=== PATIENT | male | born 1985 | race Caucasian/White ===

== ENCOUNTER 2019-01-20 11:30 | Emergency (ER) | payer OTHER ==
[~2019-01-20] VITALS: Ht 175.3 cm; Wt 127.5 kg
[2019-01-20 11:54] VITALS: BP 151/97
--- NOTE | 2019-01-20 13:50 | NUR ---
Patient ambulated to bed 4. RN evaluating patient at bedside.
[2019-01-20] MEDS ORDERED: NACL 0.9% 1,000 ML IV ONE (13:55)
--- NOTE | 2019-01-20 14:12 | NUR ---
PT PRESENTS TO ED WITH C/O ALCOHOL WITHDRAWAL. PT REPORTS LAST DRINK WAS TODAY AT 0500. PT STATED HE DRINKS 2 PINTS OF VODKA PER DAY. TREMORS PRESENT; NON-DIAPHORETIC. -N/V, HALLUCINATION, OR ANXIETY.
[2019-01-20] MEDS ORDERED: diphenhydrAMINE 50 MG/ML VIAL IVP ONE (14:35)
[2019-01-20] MEDS ORDERED: FAMOTIDINE 20 MG/2 ML VIAL IVP ONE (14:35)
[2019-01-20 15:11] LABS: BARBITURATE, URINE NEG. ng/ml (NEG <=200); BENZODIAZEPINE, URINE POS. ng/mL (NEG <=200); CANNABINOID, URINE POS. ng/mL (NEG <=50); COCAINE, URINE NEG. ng/mL (NEG <=300); OPIATE, URINE NEG. ng/mL (NEG <=2000); PHENCYCLIDINE SCREEN,URINE NEG. ng/mL (NEG <=25)
--- NOTE | 2019-01-20 15:36 | NUR ---
Pupils equal and reactive to light bilaterally.Speech normal for patient. Patient is alert and oriented to person, place, time and event. Bilateral hand drafting engineer equal. Bilateral foot push equal.
[2019-01-20] MEDS ORDERED: LORazepam 1 MG TAB PO ONE (15:50)
[2019-01-20] MEDS ORDERED: hydrOXYzine HCL 25 MG TAB PO ONE (15:50)
[2019-01-20 17:19] VITALS: BP 148/88
== END 2019-01-20 17:20 | disposition home or self-care (01) ==
LOC: MED 11:30
DX: F12.10 Cannabis abuse, uncomplicated (principal); F13.10 Sedative, hypnotic or anxiolytic abuse, uncomplicated; F10.129 Alcohol abuse with intoxication, unspecified; R07.9 Chest pain, unspecified
CPT/HCPCS: 36415; 80305; 93005; 96374; 96375; 99284; G0482; J1200; J3490; J7030

== ENCOUNTER 2022-01-19 16:40 | Emergency (ER) | payer OTHER ==
[~2022-01-19] VITALS: Ht 172.7 cm; Wt 81.6 kg
[2022-01-19 16:58] VITALS: BP 185/143
--- NOTE | 2022-01-19 17:10 | NUR ---
DR BURGER AT BEDSIDE FOR EVAL
[2022-01-19] MEDS ORDERED: KETOROLAC 30 MG/ML VIAL IVP ONE (17:20)
[2022-01-19] MEDS ORDERED: FOLIC ACID 5 MG/ML SYR IM ONE (17:20)
[2022-01-19] MEDS ORDERED: MAG SULF 2000 MG/WATER PREMIX 50 ML IV ONE (17:20)
[2022-01-19] MEDS ORDERED: ONDANSETRON 4 MG/2 ML VIAL IVP ONE (17:20)
[2022-01-19] MEDS ORDERED: THIAMINE 200 MG/2 ML VIAL IM ONE (17:20)
[2022-01-19] MEDS ORDERED: NACL 0.9% 1,000 ML IV SCH (17:20)
[2022-01-19] MEDS ORDERED: ALUMINUM HYD/MAG/SIMETHICONE 30 ML, DICYCLOMINE HCL LIQUID 20 MG, LIDOCAINE VISCOUS 2% ... PO ONE ×3 (17:20)
[2022-01-19] MEDS ORDERED: MIDAZOLAM 2 MG/2 ML VIAL IVP ONE (17:20)
--- NOTE | 2022-01-19 17:26 | NUR ---
36 Y/O MALE C/O ETOH WITHDRAWL, LAST DRINK 3 HOURS AGO OF BEER. HAS BEEN BINGE DRINKING 10 DAYS 3-4 PINTS DAILY OF VODKA. C/O AUDITORY HALLUCINATIONS, CHEST PAIN, DIZZINESS AND WEAKNESS, SHAKINESS. NKA PMH: GASTRIC BYPASS
[2022-01-19] MEDS ORDERED: DICYCLOMINE HCL LIQUID 10 MG/5 ML UDC ONE (17:40)
[2022-01-19] MEDS ORDERED: ALUMINUM HYD/MAG/SIMETHICONE 30 ML UDC ONE (17:40)
[2022-01-19 17:57] LABS: BASOPHILS % (AUTO) 0.5 % (0.0-2.0); EOSINOPHILS # (AUTO) 0.1 K/uL (0-0.4); EOSINOPHILS % (AUTO) 0.7 % (0.0-4.0); HEMATOCRIT 38.6 % (36-52); HEMOGLOBIN 12.2 g/dL (12.0-18.0); LYMPHOCYTES # (AUTO) 2.2 K/uL (2.0-11.5); LYMPHOCYTES % (AUTO) 24.9 % (20.5-51.1); MEAN CORPUSCULAR HEMOGLOBIN 22 pg (27-31); MEAN CORPUSCULAR HGB CONC 32 g/dL (33-37); MEAN CORPUSCULAR VOLUME 68.8 fL (80-94); MONOCYTES # (AUTO) 0.6 K/uL (0.8-1.0); MONOCYTES % (AUTO) 7.2 % (1.7-9.3); NEUTROPHILS % (AUTO) 66.7 % (42.2-75.2); PLATELET COUNT (AUTO) 419 K/uL (140-450); RED BLOOD CELL COUNT(AUTO) 5.61 MIL/uL (4.20-6.10); RED CELL DISTRIBUTION WIDTH 19.2 % (11.6-13.7); WHITE BLOOD COUNT (AUTO) 8.9 K/uL (4.8-10.8)
[2022-01-19 19:04] LABS: ALBUMIN 4.1 g/dL (3.4-5.0); ANION GAP 27.4 (8-16); CARBON DIOXIDE 17.5 mmol/L (21-32); POTASSIUM 3.9 mmol/L (3.5-5.1); TOTAL BILIRUBIN 1.1 mg/dL (0.0-1.0)
--- NOTE | 2022-01-19 19:59 | NUR ---
DR BURGER AT BEDSIDE
[2022-01-19] MEDS ORDERED: ACETAMINOPHEN 325 MG TAB PO ONE (20:05)
[2022-01-19] MEDS ORDERED: chlordiazePOXIDE 25 MG CAP PO SCH (20:05)
[2022-01-19 20:15] LABS: APPEARANCE,URINE CLEAR (CLEAR); BILIRUBIN,URINE NEGATIVE (NEGATIVE); BLOOD, URINE NEGATIVE (NEGATIVE); COLOR,URINE YELLOW (YELLOW); LEUKOCYTE ESTERASE ,URINE NEGATIVE (NEGATIVE); NITRITE, URINE NEGATIVE (NEGATIVE); UGLUCOSE NEGATIVE (NEGATIVE)
[2022-01-19] MEDS ORDERED: LIB25 PO (21:19)
[2022-01-19] MEDS ORDERED: ONDA-188 SL (21:19)
[2022-01-19 21:35] VITALS: BP 144/79
--- NOTE | 2022-01-19 21:35 | NUR ---
Patient discharged with v/s stable. Written and verbal after care instructions given and explained. Patient alert, oriented and verbalized understanding of instructions. Ambulatory with steady gait. All questions addressed prior to discharge. ID band removed. Patient advised to follow up with PMD. Rx of LIBRIUMCOLE ODT given. Patient educated on indication of medication including possible reaction and side effects. Opportunity to ask questions provided and answered.
== END 2022-01-19 21:35 | disposition home or self-care (01) ==
LOC: MED 16:40
DX: F10.139 Alcohol abuse with withdrawal, unspecified (principal); Z20.822 Contact with and (suspected) exposure to COVID-19; Z98.890 Other specified postprocedural states; Z79.899 Other long term (current) drug therapy; Y90.3 Blood alcohol level of 60-79 mg/100 ml
CPT/HCPCS: 36415; 80053; 81001; 82150; 83690; 85025; 87426; 96365; 96366; 96372; 96375; 99285; G0482; J1885; J2250; J2405; J3411; J3475; J7030; J3490

== ENCOUNTER 2022-12-06 07:11 | Observation (INO) | payer OTHER ==
[~2022-12-06] VITALS: Ht 175.3 cm; Wt 126.6 kg
[~2022-12-06 07:11] MED LIST: LIB25 PO; ONDA-188 SL
[2022-12-06] MEDS ORDERED: LORazepam 1 MG TAB PO ONE (07:25)
[2022-12-06 07:29] VITALS: BP 126/72
--- NOTE | 2022-12-06 07:35 | NUR ---
pt ambulatory to bed 06
--- NOTE | 2022-12-06 07:40 | NUR ---
Patient being evaluated by physician at bedside.
[2022-12-06] MEDS ORDERED: LORazepam 2 MG/ML VIAL IVP ONE ×3 (07:45→13:10)
[2022-12-06] MEDS ORDERED: LORazepam 2 MG/ML VIAL ONE (07:45)
[2022-12-06] MEDS ORDERED: NACL 0.9% 1,000 ML IV ONE ×2 (07:45→09:35)
[2022-12-06 08:28] LABS: CARBON DIOXIDE 18.4 mmol/L (21-32); POTASSIUM 3.4 mmol/L (3.5-5.1)
[2022-12-06 08:29] LABS: ALBUMIN 4.2 g/dL (3.4-5.0); TOTAL BILIRUBIN 0.8 mg/dL (0.0-1.0)
[2022-12-06] MEDS ORDERED: ONDA-188 PO (09:30)
[2022-12-06] MEDS ORDERED: LORA-476 PO (09:30)
--- NOTE | 2022-12-06 10:03 | NUR ---
Patient is laying in bed, respirations even and unlabored. All needs met by staff.
--- NOTE | 2022-12-06 12:10 | NUR ---
Urine sample obtained, walked to lab.
[2022-12-06 12:59] LABS: BARBITURATE, URINE NEGATIVE ng/ml (NEG <=200); BENZODIAZEPINE, URINE POSITIVE ng/mL (NEG <=200); CANNABINOID, URINE POSITIVE ng/mL (NEG <=50); COCAINE, URINE NEGATIVE ng/mL (NEG <=300); OPIATE, URINE NEGATIVE ng/mL (NEG <=2000); PHENCYCLIDINE SCREEN,URINE NEGATIVE ng/mL (NEG <=25)
[2022-12-06 13:22] LABS: BASOPHILS # (AUTO) 0.1 K/uL (0.00-0.22); BASOPHILS % (AUTO) 1.4 % (0.0-2.0); EOSINOPHILS % (AUTO) 0.4 % (0.0-4.0); HEMATOCRIT 37.6 % (36-52); LYMPHOCYTES # (AUTO) 1.3 K/uL (2.0-11.5); LYMPHOCYTES % (AUTO) 12.5 % (20.5-51.1); MEAN CORPUSCULAR HEMOGLOBIN 22 pg (27-31); MEAN CORPUSCULAR HGB CONC 32 g/dL (33-37); MEAN CORPUSCULAR VOLUME 68.6 fL (80-94); MONOCYTES # (AUTO) 0.6 K/uL (0.8-1.0); MONOCYTES % (AUTO) 6.3 % (1.7-9.3); NEUTROPHILS # (AUTO) 8.1 K/uL (1.8-7.7); NEUTROPHILS % (AUTO) 79.4 % (42.2-75.2); PLATELET COUNT (AUTO) 374 K/uL (140-450); RED BLOOD CELL COUNT(AUTO) 5.47 MIL/uL (4.20-6.10); RED CELL DISTRIBUTION WIDTH 19.1 % (11.6-13.7); WHITE BLOOD COUNT (AUTO) 10.2 K/uL (4.8-10.8)
[2022-12-06] MEDS ORDERED: ONDANSETRON 4 MG/2 ML VIAL IVP PRN (14:20)
[2022-12-06] MEDS ORDERED: ACETAMINOPHEN 325 MG TAB PO PRN (14:20)
[2022-12-06] MEDS ORDERED: MORPHINE SULFATE 2 MG/ML SYR IVP PRN (14:20)
[2022-12-06] MEDS ORDERED: LORazepam 2 MG/ML VIAL IVP PRN (14:20)
[2022-12-06] MEDS: NACL 0.9% 1,000 ML IV SCH ×2 (14:49→21:47)
--- NOTE | 2022-12-06 15:15 | NUR ---
Patient ambulated to restroom with steady gait.
--- NOTE | 2022-12-06 16:40 | NUR ---
Patient will be admitted to care of Dr. Tinajero. Admited to Telemetry. Will go to room 112-A. Belongings list completed. Report to CECILIA Porter.
--- NOTE | 2022-12-06 16:50 | NUR ---
RECEIVED PATIENT FROM ED. PATIENT AMBULATORY. HEART RATE ELEVATED. PATIENT CARE PLAN STARTED.
--- NOTE | 2022-12-06 19:10 | NUR ---
ENDORSED PATIENT TO PM NURSE FOR CONTINUITY OF CARE.
--- NOTE | 2022-12-06 19:10 | NUR ---
RECEIVED REPORT FROM DAY SHIFT NURSE FOR CONTINUITY OF CARE. PT IS AWAKE, A&O X4, AMBULATORY, ON ROOM AIR AND ON CARDIAC MONITORING. PT HAS IV SITE LOCATED AT LEFT AC 20 GAUGE, INTACT AND PATENT. NO PAIN STATED AT THIS TIME BUT HAS STATED THAT HE FEEL VERY WARM. GAVE THE PATIENT ICE PAKS TO AROUND AROUND UPPER EXTREMITIES. PLACED CALL LIGHT WITHIN REACH, ENCOURAGED TO USE IF ASSISTANCE IS REQUIRED.
[2022-12-06 20:00] VITALS: BP 149/90
--- NOTE | 2022-12-06 20:00 | NUR ---
Patient's Plan of Care was discussed and reviewed with AIR QUALITY CONSULTANT: WILLIAM WANG
--- NOTE | 2022-12-06 22:41 | NUR ---
PATIENT RESTING COMFORTABLY AT THIS TIME. NO VISIBLE SIGNS OF DISTRESS NOTED. WILL CONTINUE MONITORING THE PT.
[2022-12-07] VITALS: BP 145/82
--- NOTE | 2022-12-07 00:36 | NUR ---
0000 VITAL SIGNS TAKEN. HEART RATE HAS DROPPED FROM SINUS TACHY TO SINUS RHYTHM. PT REMAINS ASLEEP. IV INFUSING WELL, NO SIGNS OF INFILTRATION/LEAKING. WILL CONTINUE STRICT I&O'S WHILE MONITORING THE PATIENT.
[2022-12-07] MEDS: NACL 0.9% 1,000 ML IV SCH ×2 (01:50→10:20)
[2022-12-07 04:00] VITALS: BP 143/87
--- NOTE | 2022-12-07 05:12 | NUR ---
PATIENT SLEPT WELL THROUGHOUT SHIFT. ASSISTED TO THE BATHROOM THIS MORNING, VOIDED ONCE, AND HAD ONE BOWEL MOVEMENT. 1200 ML INTAKE RECORDED FROM IV FLUID.
[2022-12-07 06:59] LABS: BASOPHILS % (AUTO) 0.7 % (0.0-2.0); EOSINOPHILS # (AUTO) 0.2 K/uL (0-0.4); EOSINOPHILS % (AUTO) 3.2 % (0.0-4.0); HEMATOCRIT 30.5 % (36-52); HEMOGLOBIN 9.6 g/dL (12.0-18.0); LYMPHOCYTES # (AUTO) 1.2 K/uL (2.0-11.5); LYMPHOCYTES % (AUTO) 23.1 % (20.5-51.1); MEAN CORPUSCULAR HEMOGLOBIN 22 pg (27-31); MEAN CORPUSCULAR HGB CONC 32 g/dL (33-37); MEAN CORPUSCULAR VOLUME 69.7 fL (80-94); MONOCYTES # (AUTO) 0.6 K/uL (0.8-1.0); MONOCYTES % (AUTO) 10.7 % (1.7-9.3); NEUTROPHILS # (AUTO) 3.2 K/uL (1.8-7.7); NEUTROPHILS % (AUTO) 62.3 % (42.2-75.2); PLATELET COUNT (AUTO) 226 K/uL (140-450); RED BLOOD CELL COUNT(AUTO) 4.37 MIL/uL (4.20-6.10); RED CELL DISTRIBUTION WIDTH 19.1 % (11.6-13.7); WHITE BLOOD COUNT (AUTO) 5.1 K/uL (4.8-10.8)
[2022-12-07 07:09] LABS: ALBUMIN 3.2 g/dL (3.4-5.0); ANION GAP 17.4 (8-16); CARBON DIOXIDE 22.9 mmol/L (21-32); CREATININE 0.8 mg/dL (0.6-1.3); MAGNESIUM 1.6 mg/dL (1.8-2.4); POTASSIUM 3.3 mmol/L (3.5-5.1); TOTAL BILIRUBIN 1.1 mg/dL (0.0-1.0)
[2022-12-07 08:00] VITALS: BP 147/79
[2022-12-07 12:00] VITALS: BP 145/75
[2022-12-07] MEDS ORDERED: MAG SULF 2000 MG/WATER PREMIX 50 ML IV SCH (14:35)
[2022-12-07] MEDS ORDERED: POTASSIUM CHLORIDE 10 MEQ TABER PO SCH (14:35)
[2022-12-07 15:45] VITALS: BP 145/75
--- NOTE | 2022-12-16 11:21 | NUR ---
late entry: Verified with primary RN- Magnesium Sulfate IVPB was completed at 1650 on 12/07/22.
--- NOTE | 2022-12-16 11:32 | NUR ---
late entry: Verified with primary nurse James Shaver, Normal Saline infusion started on 12/06/22 at 2147 was completed on 12/07/22 at 0145. late entry: Verified with nurse Lenard Curtis, Normal Saline infusion started on 12/07/22 at 0150 was completed on 12/07/22 at 0700.
--- NOTE | 2022-12-16 16:03 | NUR ---
CALLED DR PATTERSON'S OFFICE LOCATED AT [facility] [address] [place] [address]. SPOKE WITH JEISON WHO WAS ABLE TO HELP ME SCHEDULE A FOLLOW UP APPOINTMENT FOR 12/18/2022 AT 1000. CALLED PATIENT REGARDING THE ABOVE INFORMATION
== END 2022-12-07 17:00 | disposition home or self-care (01) ==
LOC: MED 07:11 → MTU 14:20
PROVIDERS: ADMIT Hospitalist; ATTEND Hospitalist
DX: F10.239 Alcohol dependence with withdrawal, unspecified (principal); Z20.822 Contact with and (suspected) exposure to COVID-19; R00.0 Tachycardia, unspecified; E86.0 Dehydration; E87.6 Hypokalemia; E83.42 Hypomagnesemia; Z79.899 Other long term (current) drug therapy
CPT/HCPCS: 36415; 80053; 80305; 83735; 85025; 87426; 93005; 96361; 96365; 96366; 96375; 96376; 99291; G0378; J2060; J3475